=== PATIENT | female | born 1980 | race Caucasian/White ===

== ENCOUNTER 2019-06-02 12:19 | Emergency (ER) | payer BC ==
[~2019-06-02] VITALS: Ht 157.5 cm; Wt 70.5 kg
[2019-06-02 12:30] VITALS: Ht 157.5 cm; Wt 70.5 kg
[2019-06-02] MEDS ORDERED: BACLOFEN20 M1 PO (12:31)
[2019-06-02] MEDS ORDERED: ASPIRIN325 MG PO (12:31)
[2019-06-02] MEDS ORDERED: BUSPAR10 MG PO (12:31)
[2019-06-02] MEDS ORDERED: PLAVIX75 MG PO (12:32)
[2019-06-02] MEDS ORDERED: LEXAPRO10 MG PO (12:32)
[2019-06-02] MEDS ORDERED: BUTALB-APAP-CA1 EACH PO (12:32)
[2019-06-02] MEDS ORDERED: KLONOPIN0.5 MG PO (12:32)
[2019-06-02] MEDS ORDERED: CHRONULAC30 ML PO (12:33)
[2019-06-02] MEDS ORDERED: OSCIMIN0.125 M1 PO (12:33)
[2019-06-02] MEDS ORDERED: SYNTHROID50 MCG PO (12:33)
[2019-06-02] MEDS ORDERED: ZOFRAN4 MG PO (12:33)
[2019-06-02] MEDS ORDERED: PROTONIX40 MG PO (12:34)
[2019-06-02] MEDS ORDERED: MAXALT10 MG PO (12:34)
[2019-06-02] MEDS ORDERED: CRESTOR10 MG PO (12:34)
[2019-06-02] MEDS ORDERED: PHENERGAN25 M1 PO (12:34)
[2019-06-02] MEDS ORDERED: CARAFATE1 G PO (12:35)
[2019-06-02] MEDS ORDERED: BELSOMRA10 MG PO (12:35)
[2019-06-02 13:05] LABS: BASOPHILS 0.2 % (0-2); EOSINOPHILS 0.6 % (0-7); HEMOGLOBIN 14.5 g/dL (12-16); IMMATURE GRANULOCYTES 0.2 % (0-5); LYMPHOCYTES 24.8 % (15-50); MCH 32.8 pg (26.0-34.0); MCV 99.5 fL (80.0-100.0); MEAN PLATELET VOLUME 9.7 fL (7.4-10.4); MONOCYTES 5.6 % (2-11); NEUTROPHILS 68.6 % (40-80); PLATELET COUNT 259 10x3/uL (130-400); RBC 4.42 10x6/uL (4.00-5.40); RDW 13.1 % (11.5-14.5); WBC 10.8 10x3/uL (4.8-10.8)
[2019-06-02 13:07] LABS: HCG URINE NEGATIVE (NEGATIVE)
[2019-06-02 13:08] LABS: BILIRUBIN NEGATIVE (NEGATIVE); GLUCOSE NEGATIVE (NEGATIVE); KETONE NEGATIVE (NEGATIVE); NITRITE NEGATIVE (NEGATIVE); SPECIFIC GRAVITY 1.015 (1.005-1.020); UROBILINOGEN NORMAL (NORMAL)
[2019-06-02 13:10] LABS: BACTERIA FEW /hpf (NEGATIVE); EPITHELIAL CELLS 0-5 /hpf (0-5); RED CELLS - URINE 0-5 /hpf (0-5); WHITE CELLS - URINE 0-5 /hpf (NEGATIVE)
[2019-06-02 13:29] LABS: ALBUMIN 4.8 g/dL (3.4-5.0); ALKALINE PHOSPHATASE 88 U/L (30-120); ALT (SGPT) 23 U/L (10-68); AMYLASE - SERUM 40 U/L (25-115); BILIRUBIN - TOTAL 0.29 mg/dL (0.2-1.3); CALC OSMOLALITY 275 mosm/kg (275-300); CALCIUM 9.2 mg/dL (8.5-10.1); CARBON DIOXIDE 27.5 mmol/L (21.0-32.0); CHLORIDE - SERUM 100 mmol/L (98-107); CREATININE - SERUM 0.9 mg/dL (0.6-1.3); GLUCOSE 88 mg/dL (74-106); LIPASE 124 U/L (73-393); POTASSIUM - SERUM 3.8 mmol/L (3.5-5.1); PROTEIN - SERUM 8.5 g/dL (6.4-8.2); SODIUM 138 mmol/L (136-145); TROPONIN-I < 0.017 ng/mL (0.000-0.060); UREA NITROGEN 15 mg/dL (7-18); eGFR NON AFRICAN AMERICAN 75 mL/min (90-120)
[2019-06-02] MEDS ORDERED: LEVSIN/ANASP0.125 MG PO (14:28)
[2019-06-02] MEDS ORDERED: ZOFRAN ODT4 MG/UDTAB PO (14:28)
[2019-06-02] MEDS ORDERED: MILK OF MAGNESI30 ML PO (14:29)
[2019-06-02 15:13] VITALS: BP 122/81
== END 2019-06-02 15:18 | disposition home or self-care (01) ==
LOC: D.ER 12:19
PROVIDERS: Family Medicine
DX: K31.84 Gastroparesis (principal); R10.9 Unspecified abdominal pain; K59.00 Constipation, unspecified; R11.2 Nausea with vomiting, unspecified

== ENCOUNTER → 2019-06-18 08:52 | Outpatient (CLI) | payer BC ==
[2019-06-02 12:30] VITALS: BMI 28.4
[~2019-06-18 08:52] MED LIST: ASPIRIN325 MG PO; BACLOFEN20 M1 PO; BELSOMRA10 MG PO; BUSPAR10 MG PO; BUTALB-APAP-CA1 EACH PO; CARAFATE1 G PO; CHRONULAC30 ML PO; CRESTOR10 MG PO; KLONOPIN0.5 MG PO; LEVSIN/ANASP0.125 MG PO; LEXAPRO10 MG PO; MAXALT10 MG PO; MILK OF MAGNESI30 ML PO; OSCIMIN0.125 M1 PO; PHENERGAN25 M1 PO; PLAVIX75 MG PO; PROTONIX40 MG PO; SYNTHROID50 MCG PO; ZOFRAN ODT4 MG/UDTAB PO; ZOFRAN4 MG PO
== END | disposition home or self-care (01) ==
LOC: D.NM 08:52
PROVIDERS: ATTEND Internal Medicine Gastroenterology
DX: R10.13 Epigastric pain (principal); R11.2 Nausea with vomiting, unspecified; R13.12 Dysphagia, oropharyngeal phase; K59.00 Constipation, unspecified; K92.1 Melena; R63.4 Abnormal weight loss

== ENCOUNTER → 2019-06-25 08:36 | Outpatient (CLI) | payer BC ==
[2019-06-02 12:30] VITALS: BMI 28.4
== END | disposition home or self-care (01) ==
LOC: D.RAD 08:36
PROVIDERS: ATTEND Internal Medicine Gastroenterology
DX: R10.13 Epigastric pain (principal); R11.2 Nausea with vomiting, unspecified; R13.12 Dysphagia, oropharyngeal phase; K59.00 Constipation, unspecified; K92.1 Melena; R63.4 Abnormal weight loss

== ENCOUNTER 2019-07-14 09:37 | Day surgery (SDC) | payer BC ==
[~2019-07-14] VITALS: Ht 157.5 cm; Wt 68.2 kg
--- NOTE | ~2019-07-14 | OP ---
PATIENT NAME: JOANNE AMATO MEDICAL RECORD: [id number] LOCATION:[facility] ADMISSION DATE: SURGEON: VERNON HUMPHREY DO DATE OF OPERATION: 07/14/2019 PROCEDURE: Colonoscopy with polypectomy and biopsies and injection of tattoo. INDICATIONS FOR PROCEDURE: Abnormal weight loss, epigastric pain, nausea and vomiting, constipation, hematochezia. SCOPE: Olympus video pediatric colonoscope. MEDICATIONS: Propofol 900 mg IV per anesthesia. WITHDRAWAL TIME: 29 minutes. ESTIMATED BLOOD LOSS: Minimal. COMPLICATIONS: None. FINDINGS: Informed consent was given. The patient was made comfortable with the above medication. After reaching an adequate level of sedation by slow IV push, the patient was placed on her left side. A digital rectal examination was performed and it was normal. The endoscope was then advanced under direct visualization through the rectum to the cecum and terminal ileum. The endoscope was slowly withdrawn and mucosa was carefully examined. The prep quality was good. There were 4 separate identified polyps that were removed. Three were located in the sigmoid colon. They were all benign appearing and sessile and ranged in size from 3-5 mm in diameter. They were all removed using hot snare. In the transverse colon, there was a benign appearing sessile mixed flat type polyp that was removed using a hot snare. It measured approximately 7 mm in diameter. Of question, there were multiple areas in the ascending colon, along multiple folds that appeared to be consistent with sessile serrated adenomatous polyps. The characteristics that appeared this way included a lacy pattern and some demarcation of surrounding tissue that appeared more normal. Prior to seeing multiple sites, a single site was identified and a polypectomy was going to be performed. Normal saline was injected into the site which did make the border of the polyp stand out further, further supporting the fact that this is likely multiple serrated adenomatous polyps. Due to the area involved, no polypectomy in this area were performed. Multiple biopsies were taken along these folds. There were felt to be adenomatous tissue. A tattoo was then injected both proximally and distally to the site. The proximal injection is basically in the cecum. The distal injection is near the hepatic flexure. There were no diverticula visualized on withdrawal or advancement of the endoscope. Retroflexion was performed in the rectum with visualization of grade I internal hemorrhoids without bleeding. The endoscope was withdrawn from the patient. The patient tolerated the procedure well and there were no complications. IMPRESSION: 1. Four identified polyps that were removed by hot snare as described above. 2. Concern for multiple sessile serrated adenomatous polypoid sites in the ascending colon along multiple folds and involving a large area. Cold forceps biopsies were taken and tattoo was placed both proximally and distally while awaiting pathology results. OPERATIVE REPORT [id number] JOANNE AMATO 3. Grade I internal hemorrhoids without bleeding. PLAN AND RECOMMENDATIONS: 1. Discharge home when recovery parameters are met. 2. Follow up biopsy specimen results. 3. High fiber diet. 4. Continue lactulose and as needed, milk of mag for constipation. 5. Repeat colonoscopy will be dependent on results of pathology from today. Regarding the ascending colon, if these do bowl turner to be sessile serrated adenomatous polyp biopsies, we will need to consider referral to Dr. Ordoñez for colonoscopy with APC of multiple areas in the ascending colon versus resection of the ascending colon due to the extensive nature of these polyps. 6. Upper GI with small bowel follow through regarding the ongoing upper digestive symptoms. 7. Follow up in GI clinic in 1 month. May need to consider repeating upper endoscopy with further biopsies in light of a normal gastric emptying scan and ongoing upper digestive symptoms. TRANSINT:[id number] Voice Confirmation ID: [id number] DOCUMENT ID: [id number] VERNON HUMPHREY DO CC: [id number] DICTATION DATE: 07/14/19 1203 NUCLEAR DESIGN ENGINEER: 07/14/[address] [facility] 07/14/19 [facility] [address] [place] [address]
[2019-07-14 10:13] LABS: HEMATOCRIT 44.1 % (36.0-48.0); HEMOGLOBIN 14.5 g/dL (12-16); MCHC 32.9 g/dL (31.0-37.0); MCV 97.4 fL (80.0-100.0); RBC 4.53 10x6/uL (4.00-5.40); RDW 13.3 % (11.5-14.5); WBC 9.8 10x3/uL (4.8-10.8)
[2019-07-14] MEDS ORDERED: MAGNESIUM OXID250 MG (10:24)
[2019-07-14] MEDS ORDERED: ROPINIROLE HCL2 MG PO (10:34)
[2019-07-14 10:37] VITALS: Ht 157.5 cm; Wt 68.2 kg
== END 2019-07-14 13:10 | disposition home or self-care (01) ==
LOC: D.OPS 09:37
PROVIDERS: Anesthesiology; ATTEND Internal Medicine Gastroenterology
DX: R63.4 Abnormal weight loss (principal); R10.13 Epigastric pain; R11.2 Nausea with vomiting, unspecified; K59.00 Constipation, unspecified; K92.1 Melena; K63.5 Polyp of colon; N18.9 Chronic kidney disease, unspecified; E07.9 Disorder of thyroid, unspecified

== ENCOUNTER → 2019-07-20 09:35 | Outpatient (CLI) | payer BC ==
[2019-07-14 10:37] VITALS: BMI 27.5
[~2019-07-20 09:35] MED LIST changes: +MAGNESIUM OXID250 MG; +ROPINIROLE HCL2 MG PO
== END | disposition home or self-care (01) ==
LOC: D.RAD 09:35
PROVIDERS: ATTEND Internal Medicine Gastroenterology
DX: K21.9 Gastro-esophageal reflux disease without esophagitis (principal); R10.9 Unspecified abdominal pain; R11.2 Nausea with vomiting, unspecified

== ENCOUNTER 2020-08-10 13:50 | Emergency (ER) | payer BC ==
[2019-07-14 10:37] VITALS: Ht 160 cm; Wt 71.5 kg
[~2020-08-10] VITALS: Ht 160 cm; Wt 71.5 kg
[2020-08-10 13:56] VITALS: BP 113/83
[2020-08-10] MEDS ORDERED: LYRICA25 MG PO (14:01)
[2020-08-10] MEDS ORDERED: FENTANYL1 EAC6 TRANSDERM (14:03)
[2020-08-10] MEDS ORDERED: MIRAPEX0.125 MG PO (14:03)
[2020-08-10] MEDS ORDERED: HYDROCODON-ACE1 EAC7 PO (14:03)
[2020-08-10 14:37] LABS: HEMATOCRIT 40.8 % (36.0-48.0); HEMOGLOBIN 13.5 g/dL (12-16); MCH 31.6 pg (26.0-34.0); MCV 95.7 fL (80.0-100.0); MEAN PLATELET VOLUME 7.7 fL (7.4-10.4); RBC 4.27 10x6/uL (4.00-5.40); RDW 14.3 % (11.5-14.5); WBC 18.2 10x3/uL (4.8-10.8)
[2020-08-10 14:47] LABS: PLATELET COUNT 370 10x3/uL (130-400)
[2020-08-10 14:50] LABS: CALC OSMOLALITY 276 mosm/kg (275-300); CARBON DIOXIDE 29.7 mmol/L (21.0-32.0); CHLORIDE - SERUM 101 mmol/L (98-107); CREATININE - SERUM 0.8 mg/dL (0.6-1.3); GLUCOSE 98 mg/dL (74-106); SODIUM 139 mmol/L (136-145); UREA NITROGEN 11 mg/dL (7-18); eGFR NON AFRICAN AMERICAN 85 mL/min (90-120)
[2020-08-10 15:05] LABS: ALKALINE PHOSPHATASE 77 U/L (30-120); ALT (SGPT) 34 U/L (10-68); BILIRUBIN - TOTAL 0.27 mg/dL (0.2-1.3); C-REACTIVE PROTEIN 0.5 mg/dL (0.0-0.9); CKMB 0.2 U/L (0.0-3.6); CREATINE KINASE 48 UL (21-215); MAGNESIUM - SERUM 2.4 mg/dL (1.8-2.4); PROTEIN - SERUM 7.8 g/dL (6.4-8.2); TROPONIN-I < 0.017 ng/mL (0.000-0.060)
[2020-08-10 15:08] LABS: LYMPHOCYTES 22 % (15-50); MONOCYTES 4 % (2-11); NEUTROPHILS 73 % (40-80)
[2020-08-10 15:09] LABS: PLATELET ESTIMATE NORMAL
[2020-08-10 16:19] LABS: BILIRUBIN NEGATIVE (NEGATIVE); KETONE NEGATIVE mg/dL (< 1+); NITRITE NEGATIVE (NEGATIVE); UROBILINOGEN NORMAL mg/dL (< 2)
[2020-08-10 16:46] LABS: UDS - AMPHET NEGATIVE QUAL (NEGATIVE); UDS - BARB NEGATIVE QUAL (NEGATIVE); UDS - BENZO NEGATIVE QUAL (NEGATIVE); UDS - COCAINE NEGATIVE QUAL (NEGATIVE); UDS - OPIATE POSITIVE QUAL (NEGATIVE); UDS - PCP NEGATIVE QUAL (NEGATIVE); UDS - THC POSITIVE QUAL (NEGATIVE)
== END 2020-08-10 17:11 | disposition home or self-care (01) ==
LOC: D.ER 13:50
PROVIDERS: Family Medicine
DX: R60.9 Edema, unspecified (principal); E78.5 Hyperlipidemia, unspecified